=== PATIENT | male | born 1955 | race Caucasian/White ===

== ENCOUNTER 2017-12-27 18:06 | Emergency (ER) | payer BC ==
[~2017-12-27] VITALS: Ht 175.3 cm; Wt 77.1 kg
[~2017-12-27 18:06] MED LIST: ACETAMINOPHEN-1 EAC1; ATORVASTATIN CA40 MG PO; BENICAR20 MG PO; BREO ELLIPTA 11 EACH IH; BYSTOLIC 5 MG5 M1 PO; CIPROFLOXACIN500 M1 PO; EFFEXOR XR37.5 MG PO; FLAGYL500 M1 PO; NORCO 5-325 TA1 EACH PO; PREDNISONE 5 MG5 M1 PO; SINGULAIR 10 MG10 M1 PO; ZOFRAN ODT4 MG PO
[2017-12-27] MEDS ORDERED: NORCO 5-325 TA1 EACH PO (18:31)
[2017-12-27 18:58] VITALS: BP 118/78
== END 2017-12-27 19:11 | disposition home or self-care (01) ==
LOC: ER 18:06
DX: S42.031A Displaced fracture of lateral end of right clavicle, initial encounter for closed fracture (principal); I10 Essential (primary) hypertension; G43.909 Migraine, unspecified, not intractable, without status migrainosus; Z88.8 Allergy status to other drugs, medicaments and biological substances; V87.8XXA Person injured in other specified noncollision transport accidents involving motor vehicle (traffic), initial encounter; Y93.89 Activity, other specified; Y92.89 Other specified places as the place of occurrence of the external cause; Y99.8 Other external cause status